=== PATIENT | female | born 1970 | race Caucasian/White ===

== ENCOUNTER 2019-10-16 21:39 | Emergency (ER) | payer BC ==
--- NOTE | 2019-10-16 22:08 | EDM.PDOC ---
ED HPI GENERAL MEDICAL PROBLEM - General Chief Complaint: Upper Extremity Injury/Pain Stated Complaint: FINGER INJURY Time Seen by Provider: 10/16/19 22:25 Source of Information: Reports: Patient History Limitations: Reports: No Limitations - History of Present Illness INITIAL COMMENTS - FREE TEXT/NARRATIVE: Patient presented to the ED because of a right 5th finger injury. She accidentally pinned her right 5th finger in the ladder and sustained a skin avulsion of the fingertip. She is able to extend and flexed her finger without any difficulty. - Related Data Allergies Allergy/AdvReac Type Severity Reaction Status Date / Time No Known Allergies Allergy Verified 10/16/19 22:13 Home Meds: Home Meds NK [No Known Home Meds] 10/16/19 [History] Review of Systems - Review of Systems Review Of Systems: See Below Constitutional: Reports: No Symptoms Ears: Reports: No Symptoms Nose: Reports: No Symptoms Mouth/Throat: Reports: No Symptoms Respiratory: Reports: No Symptoms Cardiovascular: Reports: No Symptoms GI/Abdominal: Reports: No Symptoms Genitourinary: Reports: No Symptoms Musculoskeletal: Reports: No Symptoms Skin: Reports: Wound Neurological: Reports: No Symptoms Psychiatric: Reports: No Symptoms ED EXAM, GENERAL - Physical Exam Exam: See Below Exam Limited By: No Limitations General Appearance: Alert, No Apparent Distress Ears: Normal External Exam, Normal Canal, Hearing Grossly Normal Nose: Normal Inspection, Normal Mucosa Throat/Mouth: Normal Inspection, Normal Lips, Normal Teeth Head: Atraumatic, Normocephalic Neck: Normal Inspection, Supple, Non-Tender, Full Range of Motion Respiratory/Chest: No Respiratory Distress, Lungs Clear, Normal Breath Sounds Cardiovascular: Normal Peripheral Pulses, Regular Rate, Rhythm, No Edema, No Gallop (Female) Exam: Normal External Exam Extremities: Normal Inspection, Normal Range of Motion, Non-Tender Neurological: Alert, CN II-XII Intact Skin Exam: Warm, Other (avulsed sking rt fifth finger tip) Course - Vital Signs Text/Narrative:: dermabond and steri-strip was applied by ED physician Last Recorded V/S: Last Vital Signs Temp 36.8 C 10/16/19 22:24 Pulse 77 10/16/19 22:24 Resp 18 10/16/19 22:24 BP 138/88 10/16/19 22:24 Pulse Ox 97 08/26/20 22:24 Departure - Departure Time of Disposition: 22:10 Disposition: Home, Self-Care 01 Condition: Good Clinical Impression: Finger injury, Skin avulsion - Discharge Information Instructions: Finger Sprain, Adult, [id number], Deep Skin Avulsion Referrals: PCP,None [Primary Care Provider] - Forms: ED Department Discharge Additional Instructions: Please read discharge instructions on skin avulsion and wound care Keep the wound dry for 3 days Do not remove the steri-strips, it will eventually fall off on it's own Follow up as needed Sepsis Event Note (ED) - Focused Exam Vital Signs: Vital Signs Temp Pulse Resp BP Pulse Ox 10/16/19 22:24 36.8 C 77 18 138/88 97
== END 2019-10-16 22:25 | disposition home or self-care (01) ==
LOC: FB.ED 21:39
DX: S61.306A Unspecified open wound of right little finger with damage to nail, initial encounter (principal); W23.0XXA Caught, crushed, jammed, or pinched between moving objects, initial encounter
CPT/HCPCS: 12001; 99282; 99283